=== PATIENT | female | born 1975 | race Caucasian/White ===

== ENCOUNTER 2022-06-18 02:16 | Inpatient (IN) | payer MEDICAID ==
[~2022-06-18] VITALS: Ht 157.5 cm; Wt 54.4 kg
--- NOTE | 2022-06-18 03:00 | NUR ---
Patient's spouse at bedside
[2022-06-18] MEDS ORDERED: OXYCODONE/APAP 5-325 MG TABLET PO ONE (03:30)
[2022-06-18] MEDS ORDERED: PROCHLORPERAZINE MALEATE 5 MG TABLET PO ONE (03:30)
[2022-06-18] MEDS ORDERED: PROCHLORPERAZINE MALEATE 5 MG TABLET ONE (03:31)
[2022-06-18] MEDS ORDERED: OXYCODONE/APAP 5-325 MG TABLET ONE (03:31)
[2022-06-18 03:51] LABS: HEMATOCRIT 37.7 % (31.2-41.9); MEAN CORPUSCULAR HEMOGLOBIN 32.2 uug (24.7-32.8); MEAN CORPUSCULAR VOLUME 94.1 fL (75.5-95.3); PLATELET COUNT (AUTO) 427 K/uL (179-408)
[2022-06-18 04:06] LABS: CREATININE 0.6 mg/dL (0.6-1.3); POTASSIUM 3.8 mmol/L (3.5-5.1)
[2022-06-18 04:12] LABS: *BILIRUBIN,URIN NEGATIVE (NEGATIVE); *BLOOD, URINE TRACE (NEGATIVE); *CLARITY,URINE CLEAR (CLEAR); *COLOR,URINE YELLOW (YELLOW); *KETONES,URINE NEGATIVE (NEGATIVE); *UROBILINOGEN,URINE 0.2 E.U./dl (NORMAL); LEUKOCYTE ESTERASE ,URINE NEGATIVE (NEGATIVE); NITRITE, URINE NEGATIVE (NEGATIVE); PH,URINE 6.5 (5.0-8.0); UGLUCOSE NEGATIVE (NEGATIVE)
[2022-06-18 04:13] LABS: BACTERIA,URINE NONE SEEN /HPF (NONE SEEN); SQUAMOUS EPITHELIAL CELL,UR NONE SEEN /HPF (NONE SEEN); WBC,URINE 0-3 /HPF (0-3)
[2022-06-18] MEDS ORDERED: LIDOCAINE 1%-EPI 1:100,000 20 ML VIAL ONE (04:20)
--- NOTE | 2022-06-18 04:20 | NUR ---
Dr Juarez verbally ordered lidocaine 1% with Epi
[2022-06-18] MEDS ORDERED: LIDOCAINE 1%-EPI 1:100,000 20 ML VIAL IJ ONE (05:30)
--- NOTE | 2022-06-18 06:29 | NUR ---
patient has been accepted by Giuliana Young DNP
--- NOTE | 2022-06-18 06:35 | NUR ---
Called 3rd floor for M/S bed, spoke with Virgie ROSSI. Will call me back for bed assignment
--- NOTE | 2022-06-18 07:11 | NUR ---
ENDORSED TO SARA ROSSI
[2022-06-18] MEDS ORDERED: HYDROCODONE/APAP 5-325MG TABLET PO PRN (07:45)
[2022-06-18] MEDS ORDERED: REMEDY ESSENTIAL ZINC PASTE 113 GM TP PRN (07:45)
[2022-06-18] MEDS ORDERED: MAGNESIUM HYDROXIDE 30 ML LIQUID UDC PO PRN (07:45)
[2022-06-18] MEDS ORDERED: ONDANSETRON 4 MG/2 ML VIAL IV PRN (07:45)
[2022-06-18] MEDS ORDERED: HYDROCODONE/APAP 5-325MG TABLET ONE (08:04)
[2022-06-18] MEDS ORDERED: ACETAMINOPHEN 325 MG TABLET ONE (08:11)
[2022-06-18] MEDS: ACETAMINOPHEN 325 MG TABLET PO PRN ×3 (08:12→20:09)
--- NOTE | 2022-06-18 08:12 | NUR ---
Pain 8/. Tried giving [place] 5-325mg - per standing order, pt refused d/t stomach upset and nausea when receiving narcotics. Gave pt Tylenol 650mg.
--- NOTE | 2022-06-18 08:15 | NUR ---
Pt will be assigned to room 314, med-surg. No nurse assigned to yet per Fiona. Informed Nsg. die cast supervisor Gillian.
--- NOTE | 2022-06-18 08:57 | NUR ---
Called med-surg to give report, per mortgage loan computation clerk, receiving nurse nor ready.
--- NOTE | 2022-06-18 09:44 | NUR ---
Gave report to Yary ROSSI.
--- NOTE | 2022-06-18 10:12 | NUR ---
Seen by Dr. Reyes.
--- NOTE | 2022-06-18 10:25 | NUR ---
Pt in stable condition, aox4, afebrile. Transported to med-surg unit via wheelchair, assigned to rm 314. Received by Yary ROSSI.
--- NOTE | 2022-06-18 11:00 | NUR ---
Patient is admitted to room 314 from ED for pain in left shoulder for further evaluation. She is alert and oriented x 4 in no apparent distress. Her skin is intact, respiration easy and regular, lungs sounds clear, bowel sounds present all four quadrants. No swelling noted, peripheral pulses present. Patient oriented to room and call light, bed in low position.
[2022-06-18 11:04] VITALS: BP 127/76
[2022-06-18 16:42] VITALS: BP 116/58
--- NOTE | 2022-06-18 19:39 | NUR ---
NSG: Received patient lying in bed. pt was admitted for pain in left shoulder for further evaluation. alert and oriented x 4 in no apparent distress. skin is intact, respiration even and unlabored, lungs sounds clear, bowel sounds present all four quadrants. No swelling noted, peripheral pulses present. call light w/in reach.
--- NOTE | 2022-06-18 20:10 | NUR ---
PATIENT C/O MILD LEFT SHOULDER PAIN. TYLENOL 650 MG PO GIVEN.
--- NOTE | 2022-06-18 21:10 | NUR ---
patient stated feeling better now. prn effective.
[2022-06-19] MEDS: ACETAMINOPHEN 325 MG TABLET PO PRN ×2 (01:51→10:57)
--- NOTE | 2022-06-19 01:52 | NUR ---
nsg: patient c/o left shoulder pain. tylenol 650 mg po given for pain.
--- NOTE | 2022-06-19 02:52 | NUR ---
patient resting quietly. no s/s of pain or discomfort noted. prn for pain effective.
--- NOTE | 2022-06-19 05:17 | NUR ---
Remain calm and cooperative. slept well. denies any pain or discomfort at this time. call light w/in reach.
[2022-06-19 07:02] LABS: HEMATOCRIT 39.2 % (31.2-41.9); MEAN CORPUSCULAR HEMOGLOBIN 32.2 uug (24.7-32.8); MEAN CORPUSCULAR VOLUME 95.9 fL (75.5-95.3); PLATELET COUNT (AUTO) 425 K/uL (179-408)
[2022-06-19 07:32] LABS: CARBON DIOXIDE 26 mmol/L (21-32); CHLORIDE 103 mmol/L (98-107); CHOLESTEROL 215 mg/dL (<200); CREATININE 0.5 mg/dL (0.6-1.3); GLUCOSE 99 mg/dL (74-106); HDL CHOLESTEROL 63 mg/dL (40-60); MAGNESIUM 2.2 mg/dL (1.8-2.4); PHOSPHOROUS 3.6 mg/dL (2.5-4.9); POTASSIUM 3.8 mmol/L (3.5-5.1); TRIGLYCERIDES 164 MG/DL (30-150); UREA NITROGEN, BLOOD 7 mg/dL (7-18)
[2022-06-19 11:32] VITALS: BP_SYST 123; BP_SYST 137; BP_DIAS 64; BP_DIAS 85
[2022-06-19 16:56] VITALS: BP 130/67
--- NOTE | 2022-06-19 18:46 | NUR ---
Patient is discharged home. Discharge instruction given. Patient verbalized understanding. All personal belongings taken with her. Patient ambulates off unit in no apparent distress.
== END 2022-06-19 18:40 | disposition home or self-care (01) | DRG 351 ==
LOC: ER 02:23 → MEDSURG3 09:50
PROVIDERS: ADMIT Nurse Practitioner Acute Care; ATTEND Internal Medicine
PROC: 0RJK3ZZ Inspection of Left Shoulder Joint, Percutaneous Approach (ICD-10-PCS; principal; 2022-06-18)
DX: M75.52 Bursitis of left shoulder (principal); R70.0 Elevated erythrocyte sedimentation rate; Z20.822 Contact with and (suspected) exposure to COVID-19
CPT/HCPCS: 36415; 73030; 73200; 83735; 84100; 85025; 85651; 86140; 87040; A4663; G0378; J3490; J8499